=== PATIENT | male | born 1955 | race Caucasian/White ===

== ENCOUNTER 2020-09-12 11:13 | Emergency (ER) | payer OTHER ==
[~2020-09-12] VITALS: Ht 185.4 cm; Wt 136.1 kg
[2020-09-12] MEDS ORDERED: SERTRALINE HCL100 MG PO (11:24)
[2020-09-12] MEDS ORDERED: ASA81BEC PO (11:24)
[2020-09-12] MEDS ORDERED: NEURONTIN100 MG PO (11:24)
[2020-09-12] MEDS ORDERED: FLEXERIL PO (13:04)
[2020-09-12 13:14] VITALS: BP 151/54
--- NOTE | 2020-09-13 13:51 | EKG ---
[place] [address] ELECTROCARDIOGRAM REPORT Name: JASPAL ANDERSEN EUGENE Room: [facility]#: [id number] Admission: 09/12/20 Attend Phys: Discharge: 09/12/20 Date of : 53 Date of Service: 09/12/20 1144 Report #: [id number] THIS REPORT FOR: //name// [facility] ED Test Date: 2020-09-12 Test Time: 11:44:47 Pat Name: JASPAL ANDERSEN Department: Room: Gender: Education Instructor: [facility] : 1955 Requested By: Felecia Pena Order Number: [id number] MD: Omar Barlow Measurements Intervals [place] Rate: 67 P: 44 DC: 213 QRS: 18 QRSD: 101 T: 31 QT: 406 QTc: 429 Interpretive Statements Sinus rhythm Borderline prolonged DC interval Abnormal R-wave progression, early transition Baseline wander in lead(s) I,III,aVL No previous ECG available for comparison Electronically Signed On 09-13-2020 13:51:26 CDT by Omar Barlow [email or web address] <ELECTRONICALLY SIGNED> By: Omar Barlow MD, [facility] 09/13/20 1351 1144 1144 Omar Barlow MD, [facility] /EPI
== END 2020-09-12 13:15 | disposition home or self-care (01) ==
LOC: M.ERS 11:13
DX: S20.212A Contusion of left front wall of thorax, initial encounter (principal); G62.9 Polyneuropathy, unspecified; W18.39XA Other fall on same level, initial encounter; Y93.89 Activity, other specified; Y92.89 Other specified places as the place of occurrence of the external cause; Y99.8 Other external cause status